=== PATIENT | male | born 1990 | race Caucasian/White ===

== ENCOUNTER 2021-05-01 12:01 | Emergency (ER) | payer SELFPAY ==
[2021-05-01 12:04] VITALS: BP 123/84; PULSE 60; RESP 18; TEMP 36.5; O2SAT 98; BMI 23.6
--- NOTE | 2021-05-01 12:17 | CT_ITS ---
WS: [id number] CT ABDOMEN AND PELVIS NONCONTRAST HISTORY: pain, LEFT flank pain with nausea and vomiting. TECHNIQUE: Imaging performed through the abdomen and pelvis. Coronal and sagittal reformats are submi tted. All CT scans at [facility] use at least one of these dose optimization techniques: automated exposure control; mA and/or kV adjustment per patient size (includes targeted exams where d ose is matched to clinical indication); or iterative reconstruction. DLP: 785.23 mGy.cm COMPARISON: 06/26/2019 Lower thorax: Lung bases are clear. Visualized heart is normal. No hiatal hernia. Liver: Normal size liver. No mass or bile duct dilatation. Gallbladder: Normal gallbladder. Pancreas: Normal size and attenuation. Normal pancreatic duct. No pancreatitis or mass. Spleen: Normal. Adrenal glands: Normal. No mass. Right kidney: Normal size kidney with no mass or hydronephrosis. Left kidney: Very slightly enlarged LEFT kidney with mild perinephric stranding. Exophytic 16 mm cyst from the mid kidney is stable. Mild dilatation of the renal pelvis and ureter secondary to 3 mm calc ification at the UV junction. No additional calcifications. Aorta: Normal abdominal aorta, no aneurysm or atherosclerosis. No free fluid, intraperitoneal air or significant lymphadenopathy. GI tract: Normal appendix. No obstruction or inflammation. Abdominal wall: Negative. No hernia. Pelvis: Normal. Osseous structures: Unremarkable. CT/CT kidney stone 92490 IMPRESSION: 1. Very mild LEFT renal enlargement and hydroureteronephrosis secondary to a 3 mm calcification at the UV junction. 2. Normal appendix. 3. No additional calcifications within either kidney.
--- NOTE | 2021-05-01 12:19 | W.ED.ABDPA2 ---
HPI - Abdominal Pain General: Chief Complaint: Abdominal Pain Stated Complaint: L SIDE PAIN, N/V Time Seen by Provider: 05/01/21 12:12 Source: patient Mode of arrival: ambulatory Limitations: no limitations History of Present Illness: HPI narrative: Patient with complaints of sudden onset of left flank left lower quadrant and left upper quadrant abdominal pain starting this morning after waking up. He has had nausea vomiting since then. He has bilious emesis. States he had a normal bowel movement this morning. Denies any blood in his stool. Denies any fever. He has had a history of kidney stones in the past. He is also a history of testicular torsion. Patient denies any testicle pain. MD elicited complaint: abdominal pain (Left upper quadrant and left lower quadrant) and flank pain Pertinent past history: kidney stones Onset (ago): hour(s) (Started this morning after waking up) Pain Consistency: constant and colicky Location: LUQ, LLQ and L flank Severity: severe Quality: sharp Migration to: LUQ and LLQ Exacerbating factors: nothing Relieving factors: nothing Associated Symptoms: Reports nausea and vomiting; Denies chills, constipation, diarrhea, dysuria, fever(s), hematuria and hematemesis Review of Systems Const: Denies: fever(s) or chills Eyes: Denies: change in vision ENMT: Denies: throat pain Card: Denies: chest pain or palpitations Resp: Denies: dyspnea or wheezing GI: Reports: abdominal pain, nausea and vomiting; Denies: hematemesis, diarrhea or constipation : Reports: flank pain; Denies: difficulty urinating, dysuria, hematuria or testicular pain Musc: Denies: neck pain or back pain Skin/Breast: Denies: rash or pruritus Neuro: Denies: headache(s) or numbness in extremities Psych: Reports: anxiety Tanner/Lymph: Denies: enlarged lymph nodes PFSH ED PFSH: Social History Smoking and tobacco status: current every day smoker Alcohol intake: never Marital status: Single Physical Exam Const: COMMON NORMALS: no acute distress, patient oriented x3, no limitations, alert (anxious; + bilious emesis) and well nourished GENERAL APPEARANCE: cooperative HENMT: COMMON NORMALS: normocephalic and atraumatic HEAD & SCALP: normocephalic and atraumatic FACE & SINUS: normal facial exam Eye: COMMON NORMALS: EOMs intact bilaterally Neck/C-Spine: COMMON NORMALS: full ROM, no lymphadenopathy, supple and no meningeal signs GENERAL: Yes normal visual inspection Lymph: LYMPHATIC: no lymphadenopathy noted Chest: COMMONS NORMALS: normal inspection of the chest and normal palpation of entire chest wall CHEST: No Ecchymosis present and No rash Resp: COMMON NORMALS: normal respiratory effort, No retractions and clear to auscultation bilaterally EFFORT & INSPECTION: No respiratory distress AUSCULTATION: clear to auscultation bilaterally Cardio: COMMON NORMALS: regular rate, regular rhythm and Peripheral pulses 2+ throughout JUGULAR VENOUS DISTENTION: no JVD RATE: regular rate RHYTHM: regular rhythm PERIPHERAL PULSES: Peripheral pulses 2+ throughout GI: COMMON NORMALS: Soft to palpation, No hepatosplenomegaly present, no masses and no bruits AUSCULTATION: Yes normoactive bowel sounds PALPATION: Yes Soft to palpation, Yes Tenderness to palpation present (GI) (L flank) Details: LLQ and LUQ and Yes No hepatosplenomegaly present : COMMON NORMALS: Yes no CVA tenderness BLADDER/KIDNEY EXAM: Yes no CVA tenderness Back/Pelvis: COMMON NORMALS: no CVA tenderness Extremity: COMMON NORMALS: normal to inspection, full ROM and capillary refill normal Neuro: COMMON NORMALS: patient oriented x3, CN's II-XII intact bilaterally, no focal motor deficits and no sensory deficits noted SENSORIUM/ORIENTATION: Yes alert (anxious; + bilious emesis) MENINGEAL SIGNS: Yes no meningeal signs Psych: COMMON NORMALS: mental status grossly normal, Normal thought process present (Anxious) and activity/motor behavior normal THOUGHT PROCESS: Normal thought process present (Anxious) Skin: COMMON NORMALS: no rashes or lesions noted and no wounds GENERAL SKIN EXAM: no rashes or lesions noted Course Vital Signs: Vital signs: Vital Signs Temperature 97.7 F 05/01/21 12:04 Pulse Rate 64 05/01/21 12:52 Respiratory Rate 16 05/01/21 12:52 Blood Pressure 147/80 05/01/21 12:52 Pulse Oximetry 99 05/01/21 12:52 MDM - Abdominal Pain MDM Narrative: Medical decision making narrative: 1305: Pain much improved. Pain due to 3 mm stone on the left UVJ. Differential Diagnosis: Differential diagnosis abdominal pain: Likely abdominal pain, calculus of kidney and small bowel obstruction Lab Data: Attestation: I reviewed the patient's lab results. Labs: Lab Results 05/01/21 Range/Units 12:51 WBC 13.3 H (4.0-10.0) 10^3/ uL RBC 5.45 H (4.1-5.3) 10^6/u L Hgb 15.4 (11.7-16.6) g/dL Hct 46.1 (42.0-52.0) % MCV 84.6 (80-94) fL MCH 28.3 (28.0-34.0) pg MCHC 33.4 (30.0-36.0) g/dL RDW 12.4 (12.1-15.1) % Plt Count 248 (130-400) 10^3/c mm MPV 9.4 (7.4-10.4) fL Neut % (Auto) 84.0 % Lymph % (Auto) 9.8 % Grand % (Auto) 5.2 % Eos % (Auto) 0.2 % Baso % (Auto) 0.3 % Neut # (Auto) 11.20 H (1.8-7.7) 10^3/u L Lymph # (Auto) 1.3 (0.8-4.8) 10^3/u L Grand # (Auto) 0.7 (0.2-0.9) 10^3/u L Eos # (Auto) 0.0 (0.0-0.8) 10^3/u L Baso # (Auto) 0.0 (0.0-0.1) 10^3/u L Nucleated RBC % (a uto) 0 % Nucleated RBCs # 0.0 /100WBC Imaging Data ^: CT Abd/Pel: Radiologist's impression: [address] [id number] Scan ReportSigned Patient: Gilberto Salinas #: [id number]: 1990Acct#:[id number]/Sex: 30 / MADM Date: 05/01/21Loc: ERRoom/Bed:Attending Dr: Ordering Provider/Ordering MD: Moisés Granado MD Date of Service: 05/01/21 Procedure(s): CT kidney stone 27702 Accession Number(s): [id number] Report Number: [id number] WS: [id number] CT ABDOMEN AND PELVIS NONCONTRAST HISTORY: pain, LEFT flank pain with nausea and vomiting. TECHNIQUE: Imaging performed through the abdomen and pelvis. Coronal and sagittal reformats are submitted. All CT scans at [facility] use at least one of these dose optimization techniques: automated exposure control; mA and/or kV adjustment per patient size (includes targeted exams where dose is matched to clinical indication); or iterative reconstruction. DLP: 785.23 mGy.cm COMPARISON: 06/26/2019 Lower thorax: Lung bases are clear. Visualized heart is normal. No hiatal hernia. Liver: Normal size liver. No mass or bile duct dilatation. Gallbladder: Normal gallbladder. Pancreas: Normal size and attenuation. Normal pancreatic duct. No pancreatitis or mass. Spleen: Normal. Adrenal glands: Normal. No mass. Right kidney: Normal size kidney with no mass or hydronephrosis. Left kidney: Very slightly enlarged LEFT kidney with mild perinephric stranding. Exophytic 16 mm cyst from the mid kidney is stable. Mild dilatation of the renal pelvis and ureter secondary to 3 mm calcification at the UV junction. No additional calcifications. Aorta: Normal abdominal aorta, no aneurysm or atherosclerosis. No free fluid, intraperitoneal air or significant lymphadenopathy. GI tract: Normal appendix. No obstruction or inflammation. Abdominal wall: Negative. No hernia. Pelvis: Normal. Osseous structures: Unremarkable. CT/CT kidney stone [id number] IMPRESSION: 1. Very mild LEFT renal enlargement and hydroureteronephrosis secondary to a 3 mm calcification at the UV junction. 2. Normal appendix. 3. No additional calcifications within either kidney. Dictated By:Shelia Justin DOSigned By:Shelia Justin DOSigned Date/Time:05/01/21 1250 Discharge Plan Discharge Patient Disposition: Home Clinical Impression: Vomiting in adult patient, Hydronephrosis concurrent with and due to calculi of kidney and ureter, Calcium ureterolithiasis Abdominal pain Qualifiers: Abdominal location: left upper quadrant Qualified Code(s): R10.12 - Left upper quadrant pain Condition: Stable Prescriptions: New Zofran 4 mg tablet 4 mg PO Q6H PRN (Reason: nausea and vomiting) Qty: 10 RF: 2 Flomax 0.4 mg capsule 0.4 mg PO DAILY Qty: 7 RF: 1 oxycodone 5 mg capsule 5 mg PO Q6H PRN (Reason: pain) Qty: 15 RF: 0 Discharge Orders: Discharge ED (Routine); Ordered 05/01/21 Ordered By: Moisés Granado Referrals: Federico Lafleur MD [Physician] - (Follow-up next week) Discharge Activity: Increase activity as tolerated Patient Instructions: Kidney Stones (ED), Renal Colic (ED), Abdominal Pain (ED), Opioid Safety Activity Restrictions/Additional Instructions: Drink plenty fluids. You have a 3 mm stone on the left side causing mild obstruction that will likely pass. Follow-up with urology as needed next week if no improvement. Stand Alone Forms: Work/School Release Coding Level of Care Code ED National Business Director for [employer] Fwd Exam Comprehensive
[2021-05-01 12:52] VITALS: BP 147/80; PULSE 64; RESP 16; O2SAT 99
[2021-05-01] MEDS: ketorolac 30 mg/mL INJ IVP (12:55)
[2021-05-01] MEDS: ondansetron 2 mg/ML SDV 2 mL 4 MG IVP (12:55)
[2021-05-01 12:56] LABS: Basophils % 0.3 %; Eosinophils % 0.2 %; Hematocrit 46.1 % (42.0-52.0); Hemoglobin 15.4 g/dL (11.7-16.6); Lymphocytes # 1.3 10^3/uL (0.8-4.8); Lymphocytes % 9.8 %; Mean Corpuscular HGB Conc 33.4 g/dL (30.0-36.0); Mean Corpuscular Hemoglobin 28.3 pg (28.0-34.0); Mean Corpuscular Volume 84.6 fL (80-94); Mean Platelet Volume 9.4 fL (7.4-10.4); Monocytes # 0.7 10^3/uL (0.2-0.9); Monocytes % 5.2 %; Nucleated Red Blood Cells % 0 %; Platelet Count 248 10^3/cmm (130-400); Red Blood Count 5.45 10^6/uL (4.1-5.3); Red Cell Distribution Width 12.4 % (12.1-15.1); White Blood Count 13.3 10^3/uL (4.0-10.0)
[2021-05-01] MEDS: sodium chloride 0.9% 500 ML 1000 ML IV (12:56)
[2021-05-01 13:16] LABS: Anion Gap 14.4 (5-19); Blood Urea Nitrogen 19 mg/dL (6-20); Calcium 8.8 mg/dL (8.5-10.5); Carbon Dioxide 24 mmol/L (22-29); Chloride 103 mmol/L (98-107); Glomerular Filtration Rate 79.7 mL/min (90-130); Glucose 109 mg/dL (65-115); Osmolality Calculated 287 mOsm/kg (285-295); Potassium 4.4 mmol/L (3.5-5.1); Sodium 137 mmol/L (136-145)
[2021-05-01 13:41] VITALS: BP 142/78; PULSE 63; RESP 16; O2SAT 99
== END 2021-05-01 13:46 | disposition home or self-care (01) ==
PROVIDERS: Emergency Provider Family Medicine
DX: N13.2 Hydronephrosis with renal and ureteral calculous obstruction (principal); F17.210 Nicotine dependence, cigarettes, uncomplicated
CPT/HCPCS: 74176; 80048; 85025; 96361; 96374; 96375; 99283; J1885; J2405; J7050

== ENCOUNTER → 2024-01-15 16:00 | Outpatient (BNVA) | payer SELFPAY | PROVIDERS: Visit Provider Registered Nurse Neonatal Intensive Care | DX: R39.9 Unspecified symptoms and signs involving the genitourinary system (principal) | CPT/HCPCS: 81000; 87086 ==

== ENCOUNTER 2024-01-20 11:52 | Emergency (ER) | payer SELFPAY ==
[2024-01-20 12:22] VITALS: BP 137/73; PULSE 83; RESP 18; TEMP 36.8; O2SAT 100
--- NOTE | 2024-01-20 12:34 | W.ED.MALEGU ---
HPI - Male Genitourinary General: Chief complaint: Urogenital-Male Stated complaint: back pain Time Seen by Provider: 01/20/24 12:28 Source: patient Mode of arrival: ambulatory Limitations: no limitations History of Present Illness: Patient is a 33-year-old male presents to ED today with complaint of left lower back pain over the past several days has gotten severe in nature. Patient states he has a history of kidney stones ever since the age of 14. He states his last stone had to be surgically extracted. He is having urinary urgency, dysuria, and difficulty with urination. He is having chills but no reported or documented fevers. He states he feels nauseous but has not had any episodes of vomiting. Bowel movements have been normal. No injury or trauma to his back. No radicular symptoms. Seen at recently for same and placed on Flomax. MD Complaint: other (back/flank pain, urinary complaints, concern for stone) Onset (ago): day(s) Duration: constant Location: left flank Radiation: left flank Severity: similar to previous episodes Quality: sharp Relieving factors: none Exacerbating factors: urination Associated symptoms: Reports dysuria and nausea; Deny vomiting Review of Systems Const: Reports: chills; Denies: fever(s), body aches, fatigue or malaise Card: Denies: chest pain Resp: Denies: dyspnea GI: Reports: nausea; Denies: abdominal pain, vomiting, diarrhea or change in bowel habits : Reports: difficulty urinating, dysuria and urinary urgency; Denies: flank pain, urinary dribbling or change in urine stream Musc: Reports: back pain; Denies: neck pain, extremity pain, extremity swelling, joint pain or joint swelling Skin/Breast: Denies: rash Neuro: Denies: headache(s), numbness in extremities, weakness in extremities, sensory changes or dizziness [facility] ED PFSH: Social History Smoking and tobacco/nicotine status: current every day tobacco/nicotine user Alcohol intake: never Substance/Drug Use: never Marital status: Single Physical Exam Const: COMMON NORMALS: average body habitus, patient oriented x3, no limitations, healthy appearing, alert and well nourished GENERAL APPEARANCE: cooperative and in distress (appears uncomfortable secondary to pain) ORIENTATION/CONSCIOUSNESS: Yes awake, Yes oriented to person, Yes oriented to place and Yes oriented to time Resp: COMMON NORMALS: normal respiratory effort and clear to auscultation bilaterally AUSCULTATION: clear to auscultation bilaterally Cardio: COMMON NORMALS: regular rate and regular rhythm RATE: regular rate RHYTHM: regular rhythm GI: COMMON NORMALS: Normal to inspection, nondistended, normoactive bowel sounds present, Soft to palpation, No hepatosplenomegaly present and no masses INSPECTION: Yes normal to inspection AUSCULTATION: Yes normoactive bowel sounds PALPATION: Yes Soft to palpation, Yes Tenderness to palpation present (GI) (L mid to lower abdomen), No Guarding due to palpation present (GI), No Rigid due to palpation and Yes No hepatosplenomegaly present : COMMON NORMALS: Yes no CVA tenderness (tenderness below L CVA) BLADDER/KIDNEY EXAM: Yes no CVA tenderness (tenderness below L CVA) Back/Pelvis: COMMON NORMALS: no CVA tenderness (tenderness below L CVA), thoracic and lumbar spine normal to inspection, no thoracic nor lumbar tenderness, thoraco-lumbar ROM normal and straight leg raise negative bilaterally Neuro: COMMON NORMALS: patient oriented x3 SENSORIUM/ORIENTATION: Yes alert, Yes oriented to person, Yes oriented to place and Yes oriented to time Course Vital Signs: Vital signs: Vital Signs Temperature 98.2 F 01/20/24 12:22 Pulse Rate 83 01/20/24 12:22 Respiratory Rate 18 01/20/24 12:22 Blood Pressure 137/73 01/20/24 12:22 Pulse Oximetry 100 01/20/24 12:22 Oxygen Delivery Me thod Room Air 01/20/24 12:22 [facility] - Male Medical Decision Making Patient is a 33-year-old male with a history of kidney stones here for left lower back pain over the past several days. Vital signs are normal. Blood work overall is unremarkable. He does have hematuria on his UA. It does not appear suspicious for infection. CT scan showing a 3 mm left UVJ stone with mild hydronephrosis. His pain was easily controlled here. He will be discharged home with recommendations to continue Flomax, pain medications, nausea meds, urine strainer, case management referral placed for urology follow-up. Return ED precautions given. Lab Data 01/20/24 13:04 01/20/24 13:04 Radiology Impressions Abdomen/Pelvis CT 01/20/24 12:37 IMPRESSION: 3 mm left UVJ stone with mild hydronephrosis Laboratory Results WBC 9.23 10^3/uL (3.29-11.43) 01/20/24 13:04 RBC 5.57 10^6/uL (3.85-5.65) 01/20/24 13:04 Hgb 15.70 g/dL (11.27-16.99) 01/20/24 13:04 Hct 47.9 % (37-53) 01/20/24 13:04 MCV 86.0 fl (82-101) 01/20/24 13:04 MCH 28.2 pg (27-33) 01/20/24 13:04 MCHC 32.8 g/dL (30-55) 01/20/24 13:04 RDW 12.9 % (12.1-15.1) 01/20/24 13:04 Plt Count 268 10^3/cmm (157-399) 01/20/24 13:04 MPV 9.9 fL (7.4-10.4) 01/20/24 13:04 Neut % (Auto) 63.7 % 01/20/24 13:04 Lymph % (Auto) 28.0 % 01/20/24 13:04 Mcleod % (Auto) 6.9 % 01/20/24 13:04 Eos % (Auto) 0.8 % 01/20/24 13:04 Baso % (Auto) 0.4 % 01/20/24 13:04 Neut # (Auto) 5.88 10^3/uL (1.8-7.7) 01/20/24 13:04 Lymph # (Auto) 2.6 10^3/uL (0.8-4.8) 01/20/24 13:04 Mcleod # (Auto) 0.6 10^3/uL (0.2-0.9) 01/20/24 13:04 Eos # (Auto) 0.1 10^3/uL (0.0-0.8) 01/20/24 13:04 Baso # (Auto) 0.0 10^3/uL (0.0-0.1) 01/20/24 13:04 Nucleated RBC % (auto) 0 % 01/20/24 13:04 Nucleated RBCs # 0.0 /100WBC 01/20/24 13:04 Sodium 139 mmol/L (136-145) 01/20/24 13:04 Potassium 4.6 mmol/L (3.5-5.1) 01/20/24 13:04 Chloride 103 mmol/L (98-107) 01/20/24 13:04 Carbon Dioxide 25 mmol/L (22-29) 01/20/24 13:04 Anion Gap 15.6 (5-19) 01/20/24 13:04 BUN 13 mg/dL (6-20) 01/20/24 13:04 Creatinine 0.8 mg/dL (0.7-1.2) 01/20/24 13:04 GFR Calculation 112.8 mL/min (90-130) 01/20/24 13:04 Glucose 95 mg/dL (65-115) 01/20/24 13:04 Calculated Osmolality 288 mOsm/kg (285-295) 01/20/24 13:04 Calcium 8.9 mg/dL (8.5-10.5) 01/20/24 13:04 Total Bilirubin 0.3 mg/dL (0.15-1.2) 01/20/24 13:04 AST 14 U/L (0-40) 01/20/24 13:04 ALT 16 U/L (0-41) 01/20/24 13:04 Alkaline Phosphatase 69 U/L (40-130) 01/20/24 13:04 Total Protein 7.3 g/dL (6.6-8.7) 01/20/24 13:04 Albumin 4.8 g/dL (3.5-5.2) 01/20/24 13:04 Globulin 2.5 g/dL (1.3-4.6) 01/20/24 13:04 Urine Color Dark yellow (Yellow) 01/20/24 13:04 Urine Appearance Cloudy (CLEAR) A 01/20/24 13:04 Urine pH 5 (5-7) 01/20/24 13:04 Ur Specific [place] 1.020 (1.005-1.030) 01/20/24 13:04 Urine Protein 1+ (Negative) H 01/20/24 13:04 Urine Glucose (UA) Norm (Normal) 01/20/24 13:04 Urine Ketones 1+ (Negative) H 01/20/24 13:04 Urine Blood 3+ (Negative) H 01/20/24 13:04 Urine Nitrate Negative (Negative) 01/20/24 13:04 Urine Bilirubin 1+ (Negative) H 01/20/24 13:04 Urine Urobilinogen 1 mg/dL (Negative) H 01/20/24 13:04 Ur Leukocyte Esterase 1+ (Negative) H 01/20/24 13:04 Urine RBC Too numerous to cnt /hpf (0-2) H 01/20/24 13:04 Urine WBC 0-4 /hpf (0-5) H 01/20/24 13:04 Ur Squamous Epith Cells 0-4 /hpf (0-5) H 01/20/24 13:04 Calcium Oxalate Crystal 0-4 /hpf H 01/20/24 13:04 Amorphous Sediment Not Reportable 01/20/24 13:04 Urine Bacteria Trace /hpf (NONE) 01/20/24 13:04 All radiology interpretation(s) finalized by discharge Discharge Plan Discharge Patient Disposition: Home Clinical Impression: Calculus of distal left ureter Condition: Stable Prescriptions: New hydrocodone-acetaminophen 5-325 mg tablet 1 tab PO Q6H PRN (Reason: pain) Qty: 14 0RF Flomax 0.4 mg capsule 0.4 mg PO DAILY Qty: 10 0RF ondansetron 4 mg tablet,disintegrating 4 mg PO Q8H PRN (Reason: nausea and vomiting) Qty: 14 0RF ketorolac 10 mg tablet 10 mg PO Q8H PRN (Reason: pain) 3 Days Qty: 9 0RF No Action tamsulosin 0.4 mg capsule 0.4 mg PO DAILY 7 Days Qty: 7 0RF Discharge Orders: Discharge ED (Routine); Ordered 01/20/24 Ordered By: Tila Cruz Patient Instructions: Ureteral Stones (ED), Opioid Safety, Pain Management Activity Restrictions/Additional Instructions: As we discussed fill the medications and start them immediately. The Hydrocodone and Toradol you may use for pain as needed. Drink plenty of fluids and strain your urine as we discussed. You may bring any passed stones with you to your follow-up urology appointment. Case management should contact you next week to help set you up with this appointment. As we discussed you need to return to the emergency department for worsening or uncontrollable pain, repetitive episodes of vomiting, fevers, generally feeling worse or unwell, or any other concerns you may have. Hope you begin to feel better soon. Coding Level of Care Code ED Concreting Supervisor for [employer] Schwartz
--- NOTE | 2024-01-20 12:37 | CTR_ITS ---
PROCEDURE INFORMATION: Exam: CT Abdomen And Pelvis Without Contrast Exam date and time: 01/20/2024 1:05 PM Age: 33 years old Clinical indication: Other: Lower back pain HX of stones; Additional info: L lower back pain TECHNIQUE: Imaging protocol: Computed tomography of the abdomen and pelvis without contrast. Radiation optimization: All CT scans at this facility use at least one of these dose optimization techniques: automated exposure control; mA and/or kV adjustment per patient size (includes targeted exams where dose is matched to clinical indication); or iterative reconstruction. COMPARISON: CT kidney stone [id number] 05/01/2021 12:31 PM RADIATION DOSE METRICS: Total DLP (mGy-cm): 406.13 FINDINGS: Lungs: Lung bases are clear. No pleural effusion. Liver: Normal. No mass. Gallbladder and bile ducts: Normal. No calcified stones. No ductal dilation. Pancreas: Normal. No ductal dilation. Spleen: Normal. No splenomegaly. Adrenal glands: Normal. No mass. Kidneys and ureters: There is a 3 mm stone lying in the ureterovesical junction portion of the left ureter. Mild hydronephrosis is noted. Stomach and bowel: Unremarkable. No obstruction. No mucosal thickening. Appendix: No evidence of appendicitis. Intraperitoneal space: Unremarkable. No free air. No significant fluid collection. Vasculature: Unremarkable. No abdominal aortic aneurysm. Lymph nodes: Unremarkable. No enlarged lymph nodes. Urinary bladder: Unremarkable as visualized. Reproductive: Unremarkable as visualized. Bones/joints: Unremarkable. No acute fracture. Soft tissues: Unremarkable. CT/CT kidney stone [id number] IMPRESSION: 3 mm left UVJ stone with mild hydronephrosis
[2024-01-20] MEDS: ondansetron 2 mg/ML SDV 2 mL 4 MG IVP (12:47)
[2024-01-20] MEDS: ketorolac 60 mg/2 mL INJ 30 MG IVP (12:47)
[2024-01-20 13:14] LABS: Basophils % 0.4 %; Eosinophils # 0.1 10^3/uL (0.0-0.8); Eosinophils % 0.8 %; Hematocrit 47.9 % (37-53); Lymphocytes # 2.6 10^3/uL (0.8-4.8); Mean Corpuscular HGB Conc 32.8 g/dL (30-55); Mean Corpuscular Hemoglobin 28.2 pg (27-33); Mean Platelet Volume 9.9 fL (7.4-10.4); Monocytes # 0.6 10^3/uL (0.2-0.9); Monocytes % 6.9 %; Neutrophils # 5.88 10^3/uL (1.8-7.7); Neutrophils % 63.7 %; Nucleated Red Blood Cells % 0 %; Platelet Count 268 10^3/cmm (157-399); Red Blood Count 5.57 10^6/uL (3.85-5.65); Red Cell Distribution Width 12.9 % (12.1-15.1); White Blood Count 9.23 10^3/uL (3.29-11.43)
[2024-01-20] MEDS: sodium chloride 0.9% 1,000 ML 999 ML IV (13:27)
[2024-01-20 13:38] LABS: Alanine Aminotransferase 16 U/L (0-41); Albumin Level 4.8 g/dL (3.5-5.2); Alkaline Phosphatase 69 U/L (40-130); Anion Gap 15.6 (5-19); Aspartate Amino Transferase 14 U/L (0-40); Blood Urea Nitrogen 13 mg/dL (6-20); Calcium 8.9 mg/dL (8.5-10.5); Carbon Dioxide 25 mmol/L (22-29); Chloride 103 mmol/L (98-107); Creatinine Clr Calc Pharmacy 142.9709; Globulin 2.5 g/dL (1.3-4.6); Glomerular Filtration Rate 112.8 mL/min (90-130); Glucose 95 mg/dL (65-115); Osmolality Calculated 288 mOsm/kg (285-295); Potassium 4.6 mmol/L (3.5-5.1); Sodium 139 mmol/L (136-145); Total Bilirubin 0.3 mg/dL (0.15-1.2); Total Protein 7.3 g/dL (6.6-8.7)
[2024-01-20 14:19] LABS: Add Urine Microscopic? YES; Bilirubin Urine 1+ (Negative); Blood Urine 3+ (Negative); Glucose Urine UA Norm (Normal); Ketones Urine 1+ (Negative); Leukocyte Esterase Urine 1+ (Negative); Nitrate Urine Negative (Negative); Protein Urine 1+ (Negative); Urine Appearance Cloudy (CLEAR); Urine Color Dark Yellow (Yellow); Urobilinogen Urine 1 mg/dL (Negative); pH Urine 5 (5-7)
[2024-01-20 14:20] LABS: RBC Urine TOO NUMEROUS TO CNT /hpf (0-2)
[2024-01-20 14:25] LABS: Add Urine Culture? Yes; Bacteria Urine TRACE /hpf; Calcium Oxalate Crystals Urine 0-4 /hpf; Squamous Epithelial Cell Urine 0-4 /hpf (0-5); WBC Urine 0-4 /hpf (0-5)
--- NOTE | 2024-01-20 14:48 | DCPLANNER ---
While patient was still here in the ER I asked patient where he would like his referral faxed to. Patient requested urology in [facility] [place]. I faxed this patients chart to [facility] in [facility] [place] on 01/20/24 at 7681. Phone number to this clinic is: [phone]; fax sent to: [phone]
== END 2024-01-20 14:44 | disposition home or self-care (01) ==
PROVIDERS: Emergency Provider Physician Assistant
DX: N13.2 Hydronephrosis with renal and ureteral calculous obstruction (principal); Z72.0 Tobacco use
CPT/HCPCS: 74176; 80053; 81001; 85025; 87086; 96374; 96375; 99285; J1885; J2405; J7030

== ENCOUNTER → 2024-07-29 13:51 | Outpatient (BNVA) | payer SELFPAY | PROVIDERS: Visit Provider Emergency Medicine | DX: R31.9 Hematuria, unspecified (principal) | CPT/HCPCS: 81000; 87086 ==